=== PATIENT | male | born 1975 | race Caucasian/White ===

== ENCOUNTER 2020-06-03 07:59 | Outpatient (REF) | payer OTHER, SELFPAY | END 2020-06-03 08:00 | disposition home or self-care (01) | LOC: HO.LAB 07:59 | PROVIDERS: Visit Provider Internal Medicine | DX: Z20.828 Contact with and (suspected) exposure to other viral communicable diseases (principal) | CPT/HCPCS: 36415; 87635 ==

== ENCOUNTER 2020-06-25 16:32 | Emergency (ER) | payer OTHER, SELFPAY ==
--- NOTE | 2020-06-25 16:35 | CT_ITS ---
EXAMINATION: CT HEAD WITHOUT CONTRAST (STROKE PROTOCOL) CLINICAL INFORMATION: Stroke protocol. Altered mental status COMPARISON: None TECHNIQUE: Contiguous axial imaging was performed from the skull base to vertex without intravenous administration of contrast. This CT examination was performed using dose optimization techniques as appropriate, variously including the following: *Automated exposure control *Adjustment of mA and/or kV according to patient size (this includes techniques or standardized protocols for targeted exams where dose is matched to indication/reason for exam; i.e. extremities or head) *Use of iterative reconstruction technique DLP: 896 mGy-cm FINDINGS: There is a small crescent-shaped focus of hyperdensity just to the left of midline along the left medial frontal cortex, image 30/61. No extra-axial fluid collection. The ventricles are normal in size. There is no hydrocephalus, edema, or mass effect. The sánchez-white differentiation is maintained. There is no acute infarct or mass lesion. The calvarium appears intact. There is no pneumocephalus or orbital emphysema. The visualized sinuses and middle ears and mastoid air cells show no significant mucosal thickening. There are no air-fluid levels. CT/CT head for stroke IMPRESSION: 6 mm curvilinear focus of high density just to the left of midline along the left medial frontal cortex, along the path of the left anterior cerebral artery. This could represent a small focus of subarachnoid hemorrhage although it is along the course of the left anterior cerebral artery and could represent hyperdensity (i.e. thrombus) within the left anterior cerebral artery. In discussion with the ordering provider, the study is for trauma (fell down a flight of stairs) not for a stroke, favoring a small focus of subarachnoid hemorrhage. This critical result was discussed with Georgette Fay at 4:51 PM on 06/25/2020. It was ascertained that the content and urgency of the report was understood at the time of direct communication.
--- NOTE | 2020-06-25 16:36 | CT_ITS ---
EXAMINATION: CT CHEST, ABDOMEN AND PELVIS WITHOUT IV CONTRAST CLINICAL INFORMATION: AMS possible trauma COMPARISON: No pertinent prior studies are available for comparison. TECHNIQUE: Multidetector volumetric imaging was performed from the thoracic inlet through the pubic symphysis following the uneventful administration of: Oral contrast: No Intravenous contrast: None. Sagittal and coronal reformatted images were obtained on the technologist workstation. FINDINGS: CHEST: LUNG: There is motion artifact. Lung volumes are low. There is groundglass opacity particularly posteriorly and at the lung bases, favoring atelectasis. There is a 1 cm calcified granuloma in the left lower lobe MEDIASTINUM: Mild cardiomegaly. No pericardial effusion. Calcified left hilar lymph nodes are present. Several prominent prevascular lymph nodes are seen but no pathologically enlarged lymphadenopathy. PLEURA: No significant effusion. No pleural mass or thickening. CHEST WALL/AXILLA: Motion artifact limits evaluation for subtle rib fractures. No obvious fracture seen. ABDOMEN/PELVIS: There is respiratory motion artifact throughout the scan. The lack of intravenous contrast limits evaluation of the solid visceral organs including the liver, spleen, pancreas, and kidneys. LIVER, GALLBLADDER, AND BILIARY TREE: Limited non-contrast evaluation is normal. No gross focal hepatic lesion. Normal liver size and contour. No gross biliary ductal dilation. There is density near the neck of the gallbladder, image 30/115 which could represent a calculus. No gallbladder wall thickening or pericholecystic fluid. PANCREAS: Limited non-contrast evaluation is normal. No andrew-pancreatic fluid. SPLEEN: Limited non-contrast evaluation is normal. ADRENAL GLANDS: Normal; no adrenal mass. KIDNEYS AND URETERS: 5 mm nonobstructing left mid renal calculus. No hydronephrosis. GASTROINTESTINAL TRACT: Stomach and small bowel are nondilated. Normal appendix. There is a suture line across the sigmoid colon. No evidence of colitis or diverticulitis. ABDOMINAL WALL: There is a multicompartment fat-containing umbilical hernia. There is diastases of the rectus abdominis by 5.6 cm. There is fat in the right inguinal canal. LYMPH NODES: Prominent but not pathologically enlarged retroperitoneal lymph nodes are present. No iliac or inguinal lymphadenopathy. VASCULAR: Normal caliber abdominal aorta. BLADDER: Unremarkable. PELVIC VISCERA: Normal size prostate. OSSEOUS STRUCTURES: Motion artifact limits evaluation for fracture. No gross fracture seen. Degenerative disc disease with vacuum disc phenomenon at L5-S1. CT/CT abdomen pelvis wo con IMPRESSION: Limited study in the setting of trauma performed without IV contrast and limited by extensive patient motion artifact. No gross evidence of acute traumatic injury in the chest, abdomen, or pelvis.
--- NOTE | 2020-06-25 16:36 | CT_ITS ---
EXAMINATION: CT CERVICAL SPINE WITHOUT CONTRAST CLINICAL INFORMATION: Altered mental status. COMPARISON: None available. TECHNIQUE: Multidetector helical imaging of the cervical spine was obtained without intravenous contrast. A portion of the exam was repeated secondary to patient motion. Multiple axial reformats and coronal/sagittal reconstructions were created the technologist workstation for review. DLP: 1156 mGy-cm FINDINGS: Exam is partially limited by patient motion. The patient's neck is held with leftward sidebending. No demonstrated evidence of acute fracture or subluxation. The vertebral body heights and disc spaces are maintained. There is no prevertebral soft tissue swelling. The thyroid gland and remaining cervical soft tissues are normal in appearance. The lung apices demonstrate no abnormalities. CT/CT cervical spine wo con IMPRESSION: Exam is motion degraded. Within this limitation, there is no evidence of acute fracture or traumatic subluxation of the cervical spine.
--- NOTE | 2020-06-25 16:37 | ECG_ITS ---
Test Reason : AMS Blood Pressure : / mmHG Vent. Rate : 086 BPM Atrial Rate : 086 BPM P-R Int : 186 ms QRS Dur : 106 ms QT Int : 384 ms P-R-T Axes : 044 029 018 degrees QTc Int : 459 ms Normal sinus rhythm Normal ECG No previous ECGs available Referred By: Georgette Fay Electronically Signed By:HIRA MACK MD
--- NOTE | 2020-06-25 16:38 | ED_ITS ---
HPI - Altered Mental Status General Chief Complaint: Altered Mental Status Stated Complaint: ams unresponssive Time Seen by Provider: 06/25/20 16:35 Source: EMS Mode of arrival: EMS Limitations: altered mental status History of Present Illness HPI narrative: of note EMS story reported possible fall found down at bottome of stairs, I spoke to his family - he was okay up until just [employer] - he was going to take the kids to the store, couldn't find his keys and looked off - he sat down on the stairs no fall seen or heard, he was on the same level of stairs, his family noted his L side of face looked unusual and he seemed to be in pain MD complaint: altered mental status Onset (ago): minute(s) (45) Timing confirmed by: family member Severity: severe Consistency of symptoms: constant Context: other (became altered) Associated symptoms: denies other symptoms Treatments prior to arrival: IV fluid and spinal immobilization Related Data Allergies Allergy/AdvReac Type Severity Reaction Status Date / Time No Known Allergies Allergy Unverified 05/20/20 18:54 [No Known Allergies*] Review of Systems Review of Systems: ROS unable to be obtained due to altered mental status [facility] Past Medical History Medical History Nephrolithiasis Social History Social History (Updated 06/25/20 @ 16:45 by Georgette Fay DO) Smoking Status: Never smoker Advance Directives: No Advance Directives Information Provided: No Physical Exam Vital Signs: Vital Signs: Vital Signs Temp Pulse Resp BP Pulse Ox 06/25/20 20:00 97.9 F 81 18 109/70 95 06/25/20 18:27 97.9 F 82 22 H 110/72 99 06/25/20 17:41 86 24 H 117/72 98 06/25/20 16:50 97.5 F 87 24 H 123/85 90 L Body Mass Index 43.7 Appearance: responds to some painful stimuli, no obvious trauma ETOH odor noted, moderate distress Eyes: Pupils equal, round and reactive to light. 4mm some nystagmus noted ENT: Pharynx normal. Gag intact Neck: Normal inspection. Neck supple. CVS: Normal heart rate and rhythm. Pulses normal. Respiratory: No respiratory distress. Breath sounds normal. Abdomen: Soft and nontender. Obese Skin: Skin warm and dry. Normal skin color. Normal skin turgor. Extremities: No lower extremity edema. No calf ttp Neuro: responds to painful stimuli otherwise exam not able to be performed. Course Course Course Narrative: ? small focus of L parafalcine SAH - call from Radiology 16:52 Reevaluation(s) Reevaluation #1: gag intact, withdraws from painful stimuli, moves objects away, transfer images to [facility] [place] [facility] 1705 report signed and now states possible TIFFANY thrombus which was not relayed via verbal result - STAT CTA ordered now at this time. 1716 call back from [facility] [place]27 - [facility] attempting to review images but ANN MARIE is down, will continue to attempt to review aware patient in CTA patient still able to protect airway, pushes tongue depressor away, + ETOH , pending CTA read, asked radiology again for read 175 CTA negative no thrombus, no obvious SAH but states due to contrast cannot rule out call at 1808, will call [facility] to evaluate images. call back from [facility] [place] cannot review images but note on initial conversation that the site of SAH possibly seen does not correlate with exam. they will attempt to continue to review images once system is working, will keep patient in ED and repeat CT head in the next few hours. 183 patient is waking up now, call back from [facility] at [facility] no SAH seen 2031 CT scan negative for SAH on repeat, currently awake and alert, plan is to DC home once more stable MDM - Altered Mental Status MDM Narrative Medical decision making narrative: 44 yo male with hx of kidney stones became more altered at home (of note story from EMS and family is different), no obvious trauma, no response to narcan - at this time he is to be brought to CT scan immediately for stroke imaging, needs labs, he did respond and withdraw from me with painful stimuli, and gag intact, dispo per results and findings. . Lab Data Result diagrams: 06/25/20 17:00 06/25/20 17:00 Labs: Lab Results 06/25/20 06/25/20 06/25/20 Range/Units 16:36 16:54 16:59 WBC (4.8-10.8) X10*3/uL RBC (4.60-5.80) X10*6/uL Hgb (14.0-18.0) g/dl Hct (42-52) % MCV (80-98) fL MCH (27.0-33.0) pg MCHC (31.0-36.0) g/dl RDW (11.0-16.0) % Plt Count (160-400) X10*3/uL MPV (9.4-12.4) fL Immature Gran % (Auto) (0.0-0.4) % Neut % (Auto) (45-73) % Lymph % (Auto) (20-40) % [place] % (Auto) (2-11) % Eos % (Auto) (0-4) % Baso % (Auto) (0-2) % Lymph # (Auto) (1.2-4.9) X10*3/uL [place] # (Auto) (0.1-1.2) X10*3/uL Eos # (Auto) (0.0-0.4) X10*3/uL Baso # (Auto) (0.0-0.2) X10*3/uL Abs Immat Gran (auto) (0.00-0.03) X10*3/uL Absolute Neuts (auto) (2.0-8.3) X10*3/uL Absolute Nucleated RBC (0.0-0.012) X10*3/uL Nucleated RBC % (auto) (0.0-0.2) /100WBC PT (10.8-13.0) SEC INR (0.9-1.1) APTT (24.1-38.0) SEC ABG pH Cancelled ABG pCO2 Cancelled ABG pO2 Cancelled ABG HCO3 Cancelled ABG O2 Saturation Cancelled ABG Base Excess Cancelled Oxygen Given Cancelled Sodium (135-145) mmol/L Potassium (3.3-5.1) mmol/l Chloride (96-108) mmol/L Carbon Dioxide (22-29) mmol/L Anion Gap (12-20) BUN (9-16) mg/dL Creatinine (0.5-1.4) mg/dL Estim Creat Clear Calc Estimated GFR POC Glucose 93 (60-115) mg/dL Random Glucose (60-115) mg/dL Lactic Acid (0.5-2.0) mmol/L Calcium (8.4-10.2) mg/dL Magnesium (1.6-2.6) mg/dL Total Bilirubin (0.0-1.0) mg/dL Direct Bilirubin (0.0-0.5) mg/dL AST (5-37) U/L ALT (0-40) U/L Alkaline Phosphatase (39-117) U/L Ammonia (13-55) umol/L Total Creatine Kinase (38-174) U/L Troponin I High Sens 4.8 (<3.5-35.0) ng/L Total Protein (6.5-8.0) g/dL Albumin (3.5-5.0) g/dL Lipase (8-78) U/L TSH (0.32-4.0) mIU/mL Urine Color Urine Appearance Urine pH (5.0-8.0) Ur Specific Hydes (1.005-1.025) Urine Protein (NEG-TRACE) MG/DL Urine Glucose (UA) (NEG) MG/DL Urine Ketones (NEG) MG/DL Urine Blood (NEG) Urine Nitrite (NEG) Ur Leukocyte Esterase (NEG) Urine RBC (0) /HPF Urine WBC (0-4) /HPF Ur Squamous Epith Cells /LPF Urine Bacteria /LPF Ethyl Alcohol mg/dL Coronavirus (PCR) (Negative) 06/25/20 06/25/20 06/25/20 Range/Units 16:59 17:00 17:00 WBC 11.0 H (4.8-10.8) X10*3/uL RBC 5.01 (4.60-5.80) X10*6/uL Hgb 14.3 (14.0-18.0) g/dl Hct 43.9 (42-52) % MCV 87.6 (80-98) fL MCH 28.5 (27.0-33.0) pg MCHC 32.6 (31.0-36.0) g/dl RDW 15.7 (11.0-16.0) % Plt Count 213 (160-400) X10*3/uL MPV 12.2 (9.4-12.4) fL Immature Gran % (Auto) 0.5 H (0.0-0.4) % Neut % (Auto) 48.0 (45-73) % Lymph % (Auto) 42.0 H (20-40) % [place] % (Auto) 8.3 (2-11) % Eos % (Auto) 0.7 (0-4) % Baso % (Auto) 0.5 (0-2) % Lymph # (Auto) 4.6 (1.2-4.9) X10*3/uL [place] # (Auto) 0.9 (0.1-1.2) X10*3/uL Eos # (Auto) 0.1 (0.0-0.4) X10*3/uL Baso # (Auto) 0.1 (0.0-0.2) X10*3/uL Abs Immat Gran (auto) 0.06 H (0.00-0.03) X10*3/uL Absolute Neuts (auto) 5.3 (2.0-8.3) X10*3/uL Absolute Nucleated RBC 0.000 (0.0-0.012) X10*3/uL Nucleated RBC % (auto) 0.0 (0.0-0.2) /100WBC PT 11.2 (10.8-13.0) SEC INR 0.9 (0.9-1.1) APTT 30.3 (24.1-38.0) SEC ABG pH ABG pCO2 ABG pO2 ABG HCO3 ABG O2 Saturation ABG Base Excess Oxygen Given Sodium (135-145) mmol/L Potassium (3.3-5.1) mmol/l Chloride (96-108) mmol/L Carbon Dioxide (22-29) mmol/L Anion Gap (12-20) BUN (9-16) mg/dL Creatinine (0.5-1.4) mg/dL Estim Creat Clear Calc Estimated GFR POC Glucose (60-115) mg/dL Random Glucose (60-115) mg/dL Lactic Acid (0.5-2.0) mmol/L Calcium (8.4-10.2) mg/dL Magnesium (1.6-2.6) mg/dL Total Bilirubin (0.0-1.0) mg/dL Direct Bilirubin (0.0-0.5) mg/dL AST (5-37) U/L ALT (0-40) U/L Alkaline Phosphatase (39-117) U/L Ammonia (13-55) umol/L Total Creatine Kinase (38-174) U/L Troponin I High Sens (<3.5-35.0) ng/L Total Protein (6.5-8.0) g/dL Albumin (3.5-5.0) g/dL Lipase (8-78) U/L TSH (0.32-4.0) mIU/mL Urine Color Urine Appearance Urine pH (5.0-8.0) Ur Specific Hydes (1.005-1.025) Urine Protein (NEG-TRACE) MG/DL Urine Glucose (UA) (NEG) MG/DL Urine Ketones (NEG) MG/DL Urine Blood (NEG) Urine Nitrite (NEG) Ur Leukocyte Esterase (NEG) Urine RBC (0) /HPF Urine WBC (0-4) /HPF Ur Squamous Epith Cells /LPF Urine Bacteria /LPF Ethyl Alcohol 377 H* mg/dL Coronavirus (PCR) (Negative) 06/25/20 06/25/20 06/25/20 Range/Units 17:00 17:00 17:00 WBC (4.8-10.8) X10*3/uL RBC (4.60-5.80) X10*6/uL Hgb (14.0-18.0) g/dl Hct (42-52) % MCV (80-98) fL MCH (27.0-33.0) pg MCHC (31.0-36.0) g/dl RDW (11.0-16.0) % Plt Count (160-400) X10*3/uL MPV (9.4-12.4) fL Immature Gran % (Auto) (0.0-0.4) % Neut % (Auto) (45-73) % Lymph % (Auto) (20-40) % [place] % (Auto) (2-11) % Eos % (Auto) (0-4) % Baso % (Auto) (0-2) % Lymph # (Auto) (1.2-4.9) X10*3/uL [place] # (Auto) (0.1-1.2) X10*3/uL Eos # (Auto) (0.0-0.4) X10*3/uL Baso # (Auto) (0.0-0.2) X10*3/uL Abs Immat Gran (auto) (0.00-0.03) X10*3/uL Absolute Neuts (auto) (2.0-8.3) X10*3/uL Absolute Nucleated RBC (0.0-0.012) X10*3/uL Nucleated RBC % (auto) (0.0-0.2) /100WBC PT (10.8-13.0) SEC INR (0.9-1.1) APTT (24.1-38.0) SEC ABG pH ABG pCO2 ABG pO2 ABG HCO3 ABG O2 Saturation ABG Base Excess Oxygen Given Sodium 142 (135-145) mmol/L Potassium 3.9 (3.3-5.1) mmol/l Chloride 104 (96-108) mmol/L Carbon Dioxide 26 (22-29) mmol/L Anion Gap 16 (12-20) BUN 12 (9-16) mg/dL Creatinine 0.87 (0.5-1.4) mg/dL Estim Creat Clear Calc 136.8 Estimated GFR > 60 POC Glucose (60-115) mg/dL Random Glucose 102 (60-115) mg/dL Lactic Acid 2.0 (0.5-2.0) mmol/L Calcium 8.4 (8.4-10.2) mg/dL Magnesium 2.5 (1.6-2.6) mg/dL Total Bilirubin 0.3 (0.0-1.0) mg/dL Direct Bilirubin 0.2 (0.0-0.5) mg/dL AST 20 (5-37) U/L ALT 22 (0-40) U/L Alkaline Phosphatase 92 (39-117) U/L Ammonia 43 (13-55) umol/L Total Creatine Kinase 138 (38-174) U/L Troponin I High Sens (<3.5-35.0) ng/L Total Protein 8.1 H (6.5-8.0) g/dL Albumin 4.4 (3.5-5.0) g/dL Lipase 25 (8-78) U/L TSH 0.25 L (0.32-4.0) mIU/mL Urine Color Urine Appearance Urine pH (5.0-8.0) Ur Specific Hydes (1.005-1.025) Urine Protein (NEG-TRACE) MG/DL Urine Glucose (UA) (NEG) MG/DL Urine Ketones (NEG) MG/DL Urine Blood (NEG) Urine Nitrite (NEG) Ur Leukocyte Esterase (NEG) Urine RBC (0) /HPF Urine WBC (0-4) /HPF Ur Squamous Epith Cells /LPF Urine Bacteria /LPF Ethyl Alcohol mg/dL Coronavirus (PCR) (Negative) 06/25/20 06/25/20 Range/Units 17:20 17:46 WBC (4.8-10.8) X10*3/uL RBC (4.60-5.80) X10*6/uL Hgb (14.0-18.0) g/dl Hct (42-52) % MCV (80-98) fL MCH (27.0-33.0) pg MCHC (31.0-36.0) g/dl RDW (11.0-16.0) % Plt Count (160-400) X10*3/uL MPV (9.4-12.4) fL Immature Gran % (Auto) (0.0-0.4) % Neut % (Auto) (45-73) % Lymph % (Auto) (20-40) % [place] % (Auto) (2-11) % Eos % (Auto) (0-4) % Baso % (Auto) (0-2) % Lymph # (Auto) (1.2-4.9) X10*3/uL [place] # (Auto) (0.1-1.2) X10*3/uL Eos # (Auto) (0.0-0.4) X10*3/uL Baso # (Auto) (0.0-0.2) X10*3/uL Abs Immat Gran (auto) (0.00-0.03) X10*3/uL Absolute Neuts (auto) (2.0-8.3) X10*3/uL Absolute Nucleated RBC (0.0-0.012) X10*3/uL Nucleated RBC % (auto) (0.0-0.2) /100WBC PT (10.8-13.0) SEC INR (0.9-1.1) APTT (24.1-38.0) SEC ABG pH ABG pCO2 ABG pO2 ABG HCO3 ABG O2 Saturation ABG Base Excess Oxygen Given Sodium (135-145) mmol/L Potassium (3.3-5.1) mmol/l Chloride (96-108) mmol/L Carbon Dioxide (22-29) mmol/L Anion Gap (12-20) BUN (9-16) mg/dL Creatinine (0.5-1.4) mg/dL Estim Creat Clear Calc Estimated GFR POC Glucose (60-115) mg/dL Random Glucose (60-115) mg/dL Lactic Acid (0.5-2.0) mmol/L Calcium (8.4-10.2) mg/dL Magnesium (1.6-2.6) mg/dL Total Bilirubin (0.0-1.0) mg/dL Direct Bilirubin (0.0-0.5) mg/dL AST (5-37) U/L ALT (0-40) U/L Alkaline Phosphatase (39-117) U/L Ammonia (13-55) umol/L Total Creatine Kinase (38-174) U/L Troponin I High Sens (<3.5-35.0) ng/L Total Protein (6.5-8.0) g/dL Albumin (3.5-5.0) g/dL Lipase (8-78) U/L TSH (0.32-4.0) mIU/mL Urine Color YELLOW Urine Appearance CLEAR Urine pH 5.5 (5.0-8.0) Ur Specific Hydes <= 1.005 (1.005-1.025) Urine Protein NEG (NEG-TRACE) MG/DL Urine Glucose (UA) NEG (NEG) MG/DL Urine Ketones NEG (NEG) MG/DL Urine Blood NEG (NEG) Urine Nitrite NEG (NEG) Ur Leukocyte Esterase NEG (NEG) Urine RBC 0 (0) /HPF Urine WBC 0 (0-4) /HPF Ur Squamous Epith Cells NONE /LPF Urine Bacteria NONE /LPF Ethyl Alcohol mg/dL Coronavirus (PCR) NEGATIVE (Negative) ECG Data ECG #1: Attestation: I personally reviewed and interpreted this ECG as follows: ECG interpretation date: 06/25/20 ECG interpretation time: 17:36 Interpretation: Rate: 86 Rhythm: NSR [place]: normal Normal P waves. Normal NAVID. Normal QRS complex. ST T wave : normal qTC: normal prior studies: no acute ischemia The study has been interpreted contemporaneously by me. . Critical Care Time Critical Care Time Critical Care Time: Yes Total Critical Care Time: 60 Attestation: medical consult, repeat imaging, repeat checks I personally attest to this time spent taking care of the patient Discharge Plan Discharge Clinical Impression: Alcoholic intoxication Qualifiers: Complication of substance-induced condition: with delirium Qualified Code(s): F10.921 - Alcohol use, unspecified with intoxication delirium Patient Disposition: Home, Self-Care Instructions: Abuse of Alcohol (ED) Additional Instructions: stay with responsible adult tonight Stand Alone Forms: Work/School Release
[2020-06-25 16:40] LABS: Glucose, Whole Blood 93 mg/dL (60-115)
[2020-06-25 16:50] VITALS: BP 123/85; PULSE 87; RESP 24; TEMP 36.4; O2SAT 90; BMI 43.7
[2020-06-25 17:10] LABS: MANUAL DIFF FLAG NO
--- NOTE | 2020-06-25 17:13 | CT_ITS ---
EXAMINATION: CTA OF THE HEAD AND NECK CLINICAL INFORMATION: Rule out stroke. COMPARISON: Head CT from earlier in the same evening on 06/25/2020. TECHNIQUE: Test bolus sequences followed by intravenous administration 70 mL of Omnipaque 350. Helical imaging was performed in the axial plane from the mediastinum to the skull vertex. Delayed postcontrast imaging of the head was also performed. The data was processed at the ultrasound technologist's workstation for generation of MIP sequences. Three-dimensional volume rendered reformatted images were also generated at an offline 3-D workstation. Stenoses are assessed in accordance with NASCET criteria unless otherwise indicated. Limited study with motion artifacts. This CT examination was performed using dose optimization techniques as appropriate, variously including the following: *Automated exposure control *Adjustment of mA and/or kV according to patient size (this includes techniques or standardized protocols for targeted exams where dose is matched to indication/reason for exam; i.e. extremities or head) *Use of iterative reconstruction technique DLP: 1838 mGy-cm. FINDINGS: CT head: There is no evidence of acute territorial infarction. There is no loss of sánchez to white matter differentiation. No abnormal mass effect or midline shift is seen. No extra-axial fluid collections are identified. There is no abnormal enhancement. The ventricles are normal in size. There is no abnormal attenuation within the brain parenchyma. The osseous structures and soft tissues are normal. The mastoid air cells and visualized portions of the paranasal sinuses are well aerated. CTA neck: The imaged aortic arch and origins of the great vessels are normal. The common carotid arteries are widely patent. The carotid bifurcations are normal. The cervical internal carotid arteries are normal. The vertebral arteries opacify normally and are of normal caliber. The soft tissues of the neck are unremarkable. Mild mucosal thickening in the paranasal sinuses. The imaged portions of the lungs are clear. CTA head: The intradural vertebral arteries and basilar artery are normal. The posterior cerebral arteries are widely patent. The internal carotid arteries are of normal caliber. The TIFFANY and MCA vascular complexes bilaterally are normal. The venous sinuses opacify normally. CT/CT angio head neck stroke IMPRESSION: Normal limited CT angiogram of the head and neck with motion artifacts. Imaging findings discussed with Dr. Fay at 6:09 PM on 06/25/2020.
[2020-06-25 17:19] LABS: Basophils Absolute Auto 0.1 X10*3/uL (0.0-0.2); Basophils Percent Auto 0.5 % (0-2); Eosinophils Absolute Auto 0.1 X10*3/uL (0.0-0.4); Eosinophils Percent Auto 0.7 % (0-4); Hematocrit 43.9 % (42-52); Hemoglobin 14.3 g/dl (14.0-18.0); INTERNATIONAL NORM RATIO 0.9 (0.9-1.1); Imm Gran Abs Auto 0.06 X10*3/uL (0.00-0.03); Imm Gran Pct Auto 0.5 % (0.0-0.4); Lymphocytes Absolute Auto 4.6 X10*3/uL (1.2-4.9); Mean Corpuscular HGB Conc 32.6 g/dl (31.0-36.0); Mean Corpuscular Hemoglobin 28.5 pg (27.0-33.0); Mean Corpuscular Volume 87.6 fL (80-98); Mean Platelet Volume 12.2 fL (9.4-12.4); Monocytes Absolute Auto 0.9 X10*3/uL (0.1-1.2); Monocytes Percent Auto 8.3 % (2-11); Neutrophils Absolute Auto 5.3 X10*3/uL (2.0-8.3); Platelet Count 213 X10*3/uL (160-400); Prothrombin Time 11.2 SEC (10.8-13.0); Red Blood Count 5.01 X10*6/uL (4.60-5.80); Red Cell Distribution Width 15.7 % (11.0-16.0)
[2020-06-25 17:22] LABS: Partial Thromboplastin Time 30.3 SEC (24.1-38.0)
[2020-06-25 17:41] VITALS: BP 117/72; PULSE 86; RESP 24; O2SAT 98
[2020-06-25 17:41] LABS: Glucose Urine UA NEG (NEG); Leukocyte Esterase Urine NEG (NEG); Nitrite Urine NEG (NEG); PH 5.5 (5.0-8.0); Specific Gravity - Urine <= 1.005 (1.005-1.025); Urine Blood NEG (NEG); Urine Ketones NEG (NEG); Urine Protein NEG (NEG-TRACE)
[2020-06-25 17:42] LABS: Ethanol 377 mg/dL
[2020-06-25 17:42] LABS: Appearance Urine CLEAR; Color Urine YELLOW
[2020-06-25] MEDS: iohexoL 350 MG/ML 100 ML INFUS..BTL 70 ML IV (17:43)
[2020-06-25 17:44] LABS: Alanine Aminotransferase 22 U/L (0-40); Albumin Level 4.4 g/dL (3.5-5.0); Alkaline Phosphatase 92 U/L (39-117); Anion Gap 16 (12-20); Aspartate Amino Transferase 20 U/L (5-37); Bilirubin Direct 0.2 mg/dL (0.0-0.5); Bilirubin Total 0.3 mg/dL (0.0-1.0); Blood Urea Nitrogen 12 mg/dL (9-16); Calcium 8.4 mg/dL (8.4-10.2); Carbon Dioxide 26 mmol/L (22-29); Chloride 104 mmol/L (96-108); Creatinine Clr Calc Pharmacy 136.8; Estimated Glomerular Filt Rate > 60; Glucose Random 102 mg/dL (60-115); Lipase 25 U/L (8-78); Magnesium 2.5 mg/dL (1.6-2.6); Potassium 3.9 mmol/l (3.3-5.1); Sodium 142 mmol/L (135-145); Total Protein 8.1 g/dL (6.5-8.0)
[2020-06-25 17:48] LABS: RBC Urine 0 /HPF (0); WBC Urine 0 /HPF (0-4)
[2020-06-25 17:51] LABS: Troponin-I High Sensitivity 4.8 ng/L (<3.5-35.0)
[2020-06-25 18:05] LABS: Thyroid Stimulating Hormone 0.25 mIU/mL (0.32-4.0)
[2020-06-25 18:27] VITALS: BP 110/72; PULSE 82; RESP 22; TEMP 36.6; O2SAT 99
[2020-06-25 18:42] LABS: Ammonia 43 umol/L (13-55)
[2020-06-25] MEDS: ondansetron HCL 4 MG/2 ML VIAL IVPUSH (18:59)
[2020-06-25] MEDS: 0.9 % Sodium Chloride 1,000 ML 999 ML IVCONT (19:00)
[2020-06-25 19:30] LABS: SARS COV2 PCR INHOUSE NEGATIVE (Negative)
[2020-06-25 20:00] VITALS: BP 109/70; PULSE 81; RESP 18; TEMP 36.6; O2SAT 95
--- NOTE | 2020-06-25 20:14 | CT_ITS ---
EXAMINATION: CT HEAD WITHOUT CONTRAST CLINICAL INFORMATION: Altered mental status. COMPARISON: CT angiogram acquired in the same evening on 06/25/2020. TECHNIQUE: Contiguous axial imaging was performed from the skull base to vertex without intravenous administration of contrast. This CT examination was performed using dose optimization techniques as appropriate, variously including the following: *Automated exposure control *Adjustment of mA and/or kV according to patient size (this includes techniques or standardized protocols for targeted exams where dose is matched to indication/reason for exam; i.e. extremities or head) *Use of iterative reconstruction technique DLP: 928 mGy-cm FINDINGS: There is no evidence of acute intracranial hemorrhage or territorial infarction. No abnormal mass effect or midline shift is seen. [place] to white matter differentiation is well preserved. No extra-axial fluid collections are identified. The ventricles are normal in size. There is no abnormal attenuation within the brain parenchyma. The osseous structures and soft tissues are normal. The mastoid air cells and visualized portions of the paranasal sinuses are well aerated. CT/CT head/brain wo con IMPRESSION: No acute intracranial pathology.
--- NOTE | 2020-06-25 21:12 | PC.NURSE ---
PT NOW AWAKE ON OWN, ALERT, OFFERS NO COMPLAINTS, REPORTS DRINKING A LOT OF ALCOHOL TODAY, DENIES PAIN OR INJURY. PT AWARE/AGREEABLE OF PLAN TO OBSERVE PATIENT UNTIL STABLE ENOUGH FOR D/C.
[2020-06-25 21:21] LABS: Amphetamine Screen Urine Not Detected (Not Detect); Barbiturates, Urine Not Detected (Not Detect); Benzodiazepines Screen Urine Not Detected (Not Detect); Cannabinoid Screen Urine Not Detected (Not Detect); Cocaine Screen Urine Not Detected (Not Detect); Opiate Screen Urine Not Detected (Not Detect); Phencyclidine Screen Urine Not Detected (Not Detect)
[2020-06-25 22:00] VITALS: BP 118/72; PULSE 74; RESP 16; TEMP 36.7; O2SAT 98
--- NOTE | 2020-06-26 09:10 | MHC.STROKE ---
06/25/20 1632 PATIENT ARRIVED VIA EMS, STROKE PROTOCOL ACTIVATED, DIRECT TO CT AT 1635, ? SAH, CTH H/N ALSO DONE 1715, NO LVO (LARGE VESSEL OCCLUSION), REPEAT CTH 2003. ETOH 377. SEE ED MD DISCHARGE SUMMARY.
== END 2020-06-25 23:11 | disposition home or self-care (01) ==
PROVIDERS: Emergency Provider Emergency Medicine
DX: F10.121 Alcohol abuse with intoxication delirium (principal); Y90.8 Blood alcohol level of 240 mg/100 ml or more; Z20.828 Contact with and (suspected) exposure to other viral communicable diseases; Z87.442 Personal history of urinary calculi
CPT/HCPCS: 36415; 70450; 70496; 70498; 71250; 72125; 74176; 80048; 80076; 80307; 80320; 81001; 82140; 82550; 82947; 83605; 83690; 83735; 84443; 84484; 85025; 85610; 85730; 87040; 87635; 93005; 96361; 96374; 96375; 99284; 99291; J2405

== ENCOUNTER 2020-08-23 09:01 | Outpatient (REF) | payer OTHER, SELFPAY | END 2020-08-23 09:02 | disposition home or self-care (01) | LOC: HO.LAB 09:01 | PROVIDERS: Visit Provider Internal Medicine | DX: Z20.828 Contact with and (suspected) exposure to other viral communicable diseases (principal) | CPT/HCPCS: C9803; U0003 ==

== ENCOUNTER 2025-05-29 13:44 | Outpatient (REF) | payer OTHER, SELFPAY ==
--- OUTSIDE RECORDS SUMMARY | 2025-05-29 13:00 | XMS_ITS | Encounter Summary ---
Author Organization [employer] Address [address] [place] [address] 7[address] [place] [address] Care Team Providers Care Eyewear Consultant Name Role Phone Leyda Hunt MD Primary Care Provider [phone] Reason for Referral * Consultation (Routine) - Pending Review Specialty Diagnoses / Procedures Referred By Saray rivera Referred To Contact General Surgery Diagnoses Incisional hernia, without obstruction or gangrene Leyda Hunt MD [address] [place] [address] Phone: tel: fax: [facility] General Surgeons [address] [place] [address] Phone: tel: fax: Referral ID Status Reason Start Date Expiration Date Visits Requested Visits Authorized [id number] Pending Review Specialty Services Required 05/29/2025 05/29/2026 1 1 * Consultation (Routine) - Pending Review Specialty Diagnoses / Procedures Referred By Saray rivera Referred To Contact Gastroenterology Diagnoses Perianal fistula Leyda Hunt MD [address] [place] [address] Phone: tel: fax: [facility] General Surgery [address] [place] [address] Phone: tel: fax: Referral ID Status Reason Start Date Expiration Date Visits Requested Visits Authorized [id number] Pending Review Specialty Services Required 05/29/2025 05/29/2026 1 1 * Consultation (Routine) - Pending Review Specialty Diagnoses / Procedures Referred By Saray rivera Referred To Contact Gastroenterology Diagnoses Screening for colon cancer Perianal fistula Leyda Hunt MD [address] [place] [address] Phone: tel: fax: [facility] Gastroenterology [address] [facility] 3rd Floor [address] [place], [place] Phone: tel: fax: Referral ID Status Reason Start Date Expiration Date Visits Requested Visits Authorized [id number] Pending Review Specialty Services Required 05/29/2025 05/29/2026 1 1 Reason for Visit * Reason Comments new pt Encounter Details Date Type Department Care Team ([facility] st Contact Info) Description 05/29/2025 1:00 PM EDT Office Visit [facility] [address] [place] [id number] Leyda Hunt MD [address] [place] [address] Encounter for immunization (Primary Dx); Dietary counseling; Exercise counseling; Class 2 severe obesity with serious comorbidity and body mass index (BMI) of 37.0 to 37.9 in adult, unspecified obesity type (CMS/HCC); Screening examination for STI; Screening for colon cancer; Perianal fistula; Incisional hernia, without obstruction or gangrene Social History Tobacco Use Types Packs/Day Years Used Date Smoking Tobacco: Never Smokeless Tobacco: Never Tobacco Cessation:Counseling Given: Not Answered Sex and Gender Information Value Date Recorded Sex Assigned at Male 07/03/2022 10:31 AM EDT Legal Sex Male 10:31 AM EDT Gender Identity Male 05/28/2025 2:44 PM EDT Sexual Orientation Choose not to disclose 2021 10:31 AM EDT documented as of this encounter Last Filed Vital Signs Vital Sign Reading Time Taken Comments Blood Pressure 120/80 05/29/2025 12:59 PM EDT Pulse 66 05/29/2025 12:59 PM EDT Temperature 36.9 C (98.5 F) 05/29/2025 12:59 PM EDT Respiratory Rate 21 05/29/2025 12:59 PM EDT Oxygen Saturation - - Inhaled Oxygen Concentration - - Weight 110 kg (242 lb) 05/29/2025 12:59 PM EDT Height 170.2 cm (5' 7 ) 05/29/2025 12:59 PM EDT Body Mass Index 37.9 05/29/2025 12:59 PM EDT documented in this encounter Progress Notes * Leyda Hunt MD - 05/29/2025 1:00 PM EDT SUBJECTIVE: Lia Gee is a 49 y.o. male who presents for new/transfer patient. Denies recent illness, ER visit, or hospitalization. Accompanied by Acute Concerns: - Concerns about umbilical hernia and perianal fissure Chronic concerns: Umbilical hernia - History of diverticulitis requiring colon resection surgery several years ago - Developed umbilical hernia following colon surgery, attributed to lack of post-operative self-care - Hernia has not previously caused significant symptoms and was not addressed - Reports increased prominence and mild pain in the hernia recently, especially since losing weight - Able to reduce hernia by lying down and pushing it back in - Denies changes in color of hernia (no bloody or purple discoloration) - No history of hernia incarceration Weight loss - Weight peaked at approximately 310 lbs in 2019 - Initiated dietary changes with enroller and began regular exercise, including gym attendance and treadmill walking, starting in 2021 - Has lost approximately 75 lbs since 2021 - Currently maintaining weight loss, though progress has slowed Perianal fistula - History of perianal fistula for approximately 20 years - Fistula has produced yellow discharge but has not caused significant symptoms, so no prior treatment sought - Reports ongoing presence of fistula and intermittent discharge over the years - Underwent colonoscopy at time of colon surgery, which did not reveal significant findings Sleep apnea - Previously underwent sleep study, but did not follow up for results or treatment - Reports snoring and episodes of apparent apnea during sleep, as observed by spouse - Sleep duration typically 6.5 to 7 hours nightly - Sometimes feels tired upon waking, other times feels rested Excessive sweating - Reports excessive sweating during gym workouts, resulting in clothing being completely wet - Noted excessive sweating even while sedentary in [facility], despite hot climate and others not sweating as much - Sweating occurs over entire body - Denies discomfort in hot environments, but feels self-conscious due to sweating more than others - Reports increased sweating coinciding with period of weight loss - Consumes energy drinks (Monster, Celsius), typically two per day, sometimes three, primarily for work Family history relevant to present illness - Father of disseminated cancer of unknown primary, diagnosed late and within one month - Mother has diabetes, hypertension, and hyperthyroidism Patient Active Problem List Diagnosis Date Noted Perianal fistula 05/29/2025 Class 2 severe obesity with serious comorbidity and body mass index (BMI) of 37.0 to 37.9 in adult ([facility]) 05/29/2025 Surgical History[1] ethan-colectomy Social - Works as a cook fish eggs, night filler, 7 days a week - Regular exercise: treadmill walking, weightlifting, stretching since 2021 - Sleeps 6??-7 hours per night - Reports snoring and witnessed apneas per spouse - Consumes 2-3 energy drinks (Monster, Celsius) daily Review of Systems Constitutional: Negative. Respiratory: Negative. Cardiovascular: Negative. Gastrointestinal: Positive for abdominal distention and abdominal pain. Ventral wall incisional hernia, soft and reducible Genitourinary: Rectal pain Skin: Positive for wound. OBJECTIVE: Vitals: 05/29/25 1259 BP: 120/80 BP Location: Left arm Patient Position: Sitting BP Cuff Size: Large adult Pulse: 66 Resp: 21 Temp: 98.5 ??F (36.9 ??C) TempSrc: Oral Weight: 242 lb (110 kg) Height: 5' 7 (1.702 m) Physical Exam Vitals and nursing note reviewed. Constitutional: Appearance: Normal appearance. He is normal weight. HENT: Head: Normocephalic and atraumatic. Right Ear: Tympanic membrane, ear canal and external ear normal. Left Ear: Tympanic membrane, ear canal and external ear normal. Nose: Nose normal. Mouth/Throat: Mouth: Mucous membranes are moist. Pharynx: Oropharynx is clear. Eyes: Extraocular Movements: Extraocular movements intact. Conjunctiva/sclera: Conjunctivae normal. Pupils: Pupils are equal, round, and reactive to light. Cardiovascular: Rate and Rhythm: Normal rate and regular rhythm. Pulses: Normal pulses. Heart sounds: Normal heart sounds. Pulmonary: Effort: Pulmonary effort is normal. Breath sounds: Normal breath sounds. Abdominal: General: Abdomen is flat. Bowel sounds are normal. There is no distension. Palpations: Abdomen is soft. Hernia: A hernia is present. Comments: 8 x 9cm incisional hernia Genitourinary: Comments: 2cm perirectal fissure at 6 oclock Musculoskeletal: General: Normal range of motion. Cervical back: Normal range of motion and neck supple. Skin: General: Skin is warm and dry. Capillary Refill: Capillary refill takes less than 2 seconds. Neurological: General: No focal deficit present. Mental Status: He is alert and oriented to person, place, and time. Psychiatric: Mood and Affect: Mood normal. Behavior: Behavior normal. ASSESSMENT/PLAN Assessment & Plan Dietary counseling: - Continue current dietary regimen as advised by enroller. Maintain weight loss efforts. Exercise counseling: - Continue regular exercise including treadmill walking and weightlifting. Add stretching exercisesafter walks to improve joint flexibility. Class 2 severe obesity with serious comorbidity and body mass index (BMI) of 37.0 to 37.9 in adult,unspecified obesity type (CMS/HCC): - Class 2 obesity with significant weight loss achieved since 2021. Ongoing efforts to reduce BMI. - Continue weight loss program and regular physical activity. Monitor progress. Screening examination for STI: - Offered STI screening; no specific plan documented. Umbilical hernia: - Reducible umbilical hernia, more pronounced with recent weight loss. No signs of incarceration orstrangulation. - Referred to general surgery at [facility] for evaluation and possible outpatient surgical repair. Advised to monitor for changes in color or irreducibility and seek emergency care if these occur. Perianal fistula: - Chronic perianal fistula, longstanding and non-healing. - Referred to colorectal surgery for evaluation and possible surgical repair. Referred for colonoscopy with gastroenterology to assess for underlying pathology. Excessive diaphoresis: - Generalized hyperhidrosis, possibly related to stimulant intake (energy drinks containing caffeine and other sympathomimetic agents). - Advised to reduce intake of energy drinks and consider diluting them to decrease stimulant exposure. Suspected sleep apnea: - Suspected sleep apnea based on reported snoring and observed apneic episodes by spouse. - Deferred polysomnography until after surgical interventions and further weight loss. Appointments - Referral to oil field equipment mechanic supervisor for colonoscopy - Referral to colorectal surgeon for perianal fistula repair - Referral to general surgeon at [facility] for hernia repair - Follow-up appointment in four months to assess surgical outcomes Problem List Items Addressed This Visit Perianal fistula Relevant Orders Referral to Gastroenterology Referral to Colorectal Surgery Class 2 severe obesity with serious comorbidity and body mass index (BMI) of 37.0 to 37.9 in adult (CMS/HCC) Relevant Orders TSH W/Reflex to FT4 Hemoglobin A1c Lipid Panel, Standard Comprehensive Metabolic Panel CBC auto differential Other Visit Diagnoses Encounter for immunization - Primary Relevant Orders FLU VACCINE TRIVALENT [id number] (Fluarix) 6 mo + (Completed) Dietary counseling Exercise counseling Screening examination for STI Relevant Orders HIV-1/2 Antigen and Antibodies, Fourth Generation, with Reflexes Hepatitis C Antibody with Reflex to HCV, RNA, Quantitative, Real-Time PCR RPR (Monitor) with Reflex to Titer Chlamydia/N. Gonorrhoeae RNA, TMA, Urogenitial Screening for colon cancer Relevant Orders Referral to Gastroenterology Incisional hernia, without obstruction or gangrene Relevant Orders Referral to General Surgery Follow Up: 6-12 months or sooner prn Allergies[2] Current Medications[3] Montenegrin Translation: Provided by [facility] staff member MEET Olivo This note was drafted using Ambient (AI) technology. The patient/patient's guardian has been informed and has consented to the use of this technology: Yes [1] History reviewed. No pertinent surgical history. [2] No Known Allergies [3] No current outpatient medications on file. documented in this encounter Plan of Treatment Scheduled Orders Name Type Priority Associated Diagnoses Orde r Schedule TSH W/Reflex to FT4 Lab Routine Class 2 severe obesity with serious comorbidity and body mass index (BMI) of 37.0 to 37.9 in adult, unspecified obesity type (CMS/HCC) Expected: 05/29/2025 (Approximate), Expires: 05/29/2026 Hemoglobin A1c Lab Routine Class 2 severe obesity with serious comorbidity and body mass index (BMI) of 37.0 to 37.9 in adult, unspecified obesity type (CMS/HCC) Expected: 05/29/2025 (Approximate), Expires: 05/29/2026 Lipid Panel, Standard Lab Routine Class 2 severe obesity with serious comorbidity and body mass index (BMI) of 37.0 to 37.9 in adult, unspecified obesity type (CMS/HCC) Expected: 05/29/2025 (Approximate), Expires: 05/29/2026 Comprehensive Metabolic Panel Lab Routine Class 2 severe obesity with serious comorbidity and body mass index (BMI) of 37.0 to 37.9 in adult, unspecified obesity type (CMS/HCC) Expected: 05/29/2025 (Approximate), Expires: 05/29/2026 HIV-1/2 Antigen and Antibodies, Fourth Generation, with Reflexes Lab Routine Screening examination for STI Expected: 05/29/2025 (Approximate), Expires: 05/29/2026 Hepatitis C Antibody with Reflex to HCV, RNA, Quantitative, Real-Time PCR Lab Routine Screening examination for STI Expected: 05/29/2025, Expires: 05/29/2026 RPR (Monitor) with Reflex to Titer Lab Routine Screening examination for STI Expected: 05/29/2025, Expires: 05/29/2026 Chlamydia/N. Gonorrhoeae RNA, TMA, Urogenitial Microbiology Routine Screening examination for STI Expected: 05/29/2025 (Approximate), Expires: 05/29/2026 CBC auto differential Lab Routine Class 2 severe obesity with serious comorbidity and body mass index (BMI) of 37.0 to 37.9 in adult, unspecified obesity type (CMS/HCC) Expected: 05/29/2025 (Approximate), Expires: 05/29/2026 Scheduled Referrals Name Type Priority Associated Diagnoses Order Schedule Referral to Gastroenterology Outpatient Referral Routine Screening for colon cancer Perianal fistula Expected: 05/29/2025 (Approximate), Expires: 05/29/2026 Referral to Colorectal Surgery Outpatient Referral Routine Perianal fistula Expected: 05/29/2025 (Approximate), Expires: 05/29/2026 Referral to General Surgery Outpatient Referral Routine Incisional hernia, without obstruction or gangrene Expected: 05/29/2025 (Approximate), Expires: 05/29/2026 documented as of this encounter Visit Diagnoses Diagnosis Encounter for immunization- Primary Dietary counseling Dietary surveillance and counseling Exercise counseling Class 2 severe obesity with serious comorbidity and body mass index (BMI) of 37.0 to 37.9 in adult, unspecified obesity type (CMS/HCC) Screening examination for STI Screening for colon cancer Special screening for malignant neoplasms, colon Perianal fistula Anal fistula Incisional hernia, without obstruction or gangrene documented in this encounter Care Teams Eyewear Consultant Relationship Specialty Start Date End Date Leyda Hunt MD [address] [place] [id number] PCP - General Family Medicine 05/29/25 documented as of this encounter
--- OUTSIDE RECORDS SUMMARY | 2025-05-29 14:55 | XMS_ITS | Encounter Summary ---
Author Organization [employer] Address [address] [facility] 7t [place] [address] Care Team Providers Care Natural Science Manager Name Role Phone Unavailable Primary Care Provider Unavailabl e Reason for Visit * Reason Onset Date Comments chart prep 05/27/2025 Encounter Details Date Type Department Care Team (Late st Contact Info) Description 05/27/2025 Telephone [facility] [address] [place] [address] Leyda Hunt MD [address] [place] [address] chart prep Social History Tobacco Use Types Packs/Day Years Used Date Smoking Tobacco: Never Assessed Sex and Gender Information Value Date Recorded Sex Assigned at Male 07/03/2022 10:31 AM EDT Legal Sex Male 10:31 AM EDT Gender Identity Male 05/28/2025 2:44 PM EDT Sexual Orientation Choose not to disclose 2021 10:31 AM EDT documented as of this encounter Miscellaneous Notes * Telephone Encounter - Geovani Dunn MA - 05/27/2025 2:24 PM EDT Chart Prep Labs: not applicable Images: not applicable Referrals: not applicable Vaccines due: Covid, Flu, and Hep B Screenings: colonoscopy Overdue care gaps: SBIRT, SDOH, PHQ-9, and KIET-7 documented in this encounter Plan of Treatment Not on file documented as of this encounter Visit Diagnoses Not on filedocumented in this encounter
--- OUTSIDE RECORDS SUMMARY | 2025-05-29 14:55 | XMS_ITS | Encounter Summary ---
Author Organization [employer] Address [address] [facility] [address]t [place] [address] Care Team Providers Care Media Strategist Name Role Phone Unavailable Primary Care Provider Unavailabl e Reason for Visit * Reason Onset Date Comments Telephone Call 05/28/2025 Encounter Details Date Type Department Care Team (Late st Contact Info) Description 05/28/2025 Telephone [facility] [address] [place] [address] Leyda Hunt MD [address] [place] [address] Telephone Call Social History Tobacco Use Types Packs/Day Years Used Date Smoking Tobacco: Never Assessed Sex and Gender Information Value Date Recorded Sex Assigned at Male 07/03/2022 10:31 AM EDT Legal Sex Male 10:31 AM EDT Gender Identity Male 05/28/2025 2:44 PM EDT Sexual Orientation Choose not to disclose 2021 10:31 AM EDT documented as of this encounter Miscellaneous Notes * Telephone Encounter - Kim Cantu - 05/28/2025 9:08 AM EDT Called patient to inform them of pcp other assigned in [employer]. Let him know he needs to call the insurance to have it changed over to Leyda Hunt his new pcp before his scheduled apt tmr @1pm. Pt understood and stated he would call. documented in this encounter Plan of Treatment Not on file documented as of this encounter Visit Diagnoses Not on filedocumented in this encounter
--- OUTSIDE RECORDS SUMMARY | 2025-05-29 14:55 | XMS_ITS | Encounter Summary ---
Author Organization [employer] [facility] Address [address] [facility] [address]t [place] [address] Care Team Providers Care Adjunct Physical Education Instructor Name Role Phone Leyda Hunt MD Primary Care Provider [phone] Encounter Details Date Type Department Care Team (Latest Contact Info) Description 05/29/2025 Travel Social History Tobacco Use Types Packs/Day Years Used Date Smoking Tobacco: Never Smokeless Tobacco: Never Sex and Gender Information Value Date Recorded Sex Assigned at Male 07/03/2022 10:31 AM EDT Legal Sex Male 10:31 AM EDT Gender Identity Male 05/28/2025 2:44 PM EDT Sexual Orientation Choose not to disclose 2021 10:31 AM EDT documented as of this encounter Plan of Treatment Not on file documented as of this encounter Visit Diagnoses Not on filedocumented in this encounter Care Teams Adjunct Physical Education Instructor Relationship Specialty Start Date End Date Leyda Hunt MD [address] [place] [address] PCP - General Family Medicine 05/29/25 documented as of this encounter
--- OUTSIDE RECORDS SUMMARY | 2025-05-29 14:55 | XMS_ITS | Clinical Summary ---
Author Organization [employer] Address [address] [place] [address] [address] [place] [address] Care Team Providers Care Maintenance Welder Name Role Phone Leyda Hunt MD Primary Care Provider [phone] Allergies No known active allergies Medications No known medications Active Problems Problem Noted Date Diagnosed Date Perianal fistula 05/29/2025 Class 2 severe obesity with serious comorbidity and body mass index (BMI) of 37.0 to 37.9 in adult 05/29/2025 Encounters Date Type Department Care Team Description 05/29/2025 1:00 PM EDT Office Visit [address] [address] Leyda Hunt MD Encounter for immunization (Primary Dx); Dietary counseling; Exercise counseling; Class 2 severe obesity with serious comorbidity and body mass index (BMI) of 37.0 to 37.9 in adult, unspecified obesity type (CMS/HCC); Screening examination for STI; Screening for colon cancer; Perianal fistula; Incisional hernia, without obstruction or gangrene 05/29/2025 Travel 05/28/[address] [phone] Leyda Hunt MD Telephone Call 05/27/[address] [phone] Leyda Hunt MD chart prep 05/23/2025 Travel 05/21/2025 Patient Outreach [address] [phone] Leyda Hunt MD Pre-visit Planning ((Unable to reach for PVP screening, LVM) to be completed in office ) 03/02/[address] [address] Jesús Abreu MD from Last 3 Months Immunizations Immunization Administration Dates Next Due Influenza, seasonal, injectable, preservative fr ee 05/29/2025 Tdap 05/01/2017 Social History Tobacco Use Types Packs/Day Years Used Date Smoking Tobacco: Never Smokeless Tobacco: Never Tobacco Cessation:Counseling Given: Not Answered Sex and Gender Information Value Date Recorded Sex Assigned at Male 07/03/2022 10:31 AM EDT Legal Sex Male 10:31 AM EDT Gender Identity Male 05/28/2025 2:44 PM EDT Sexual Orientation Choose not to disclose 2021 10:31 AM EDT Last Filed Vital Signs Vital Sign Reading [...] Mass Index 37.9 05/29/2025 12:59 PM EDT Plan of Treatment Health Maintenance Due Date Last Done Comments CT Colonography 1977 Colonoscopy 1977 Colorectal Cancer Screening 1977 Depression Screening 1977 FIT DNA/Cologuard 1977 FIT 1977 FOBT 1977 HIV Screening 1977 Lipid Panel 1977 SDOH Screening 1977 Sigmoidoscopy 1977 Alcohol/Substance Use Screening 1989 Family Planning (PISQ) 1992 Hepatitis C Screening 1995 Hepatitis B Vaccines (1 of 3 - 19+ 3-dose series) 1996 COVID-19 Vaccine ( - 2023-2 5 season) 2025 Disability Screening 05/23/2026 05/23/2025 Tobacco Screening 05/29/2026 05/29/2025 DTaP/Tdap/Td Vaccines (2 - T d or Tdap) 05/01/2027 05/01/2017 Zoster Vaccines (1 of 2) 2027 RSV Patients and Pa tients Aged 60 years or older (1 - 1-dose 75+ series) 2052 Influenza Vaccine Completed 05/29/2025 HIB Vaccines Aged Out No longer eligi ble based on patient's age to complete this topic HPV Vaccines Aged Out No longer eligi ble based on patient's age to complete this topic Hepatitis A Vaccines Aged Out No long er eligible based on patient's age to complete this topic IPV Vaccines Aged Out No longer eligi ble based on patient's age to complete this topic Meningococcal B Vaccine Aged Out No l onger eligible based on patient's age to complete this topic Meningococcal Vaccine Aged Out No silvano thu eligible based on patient's age to complete this topic Pneumococcal Vaccine: Pediat rics (0 to 5 Years) and At-Risk Patients (6 to 49) Years Aged Out No longer eligi ble based on patient's age to complete this topic RSV under 20 months Aged Out No longe r eligible based on patient's age to complete this topic Rotavirus Vaccines Aged Out No longer eligible based on patient's age to complete this topic Insurance Care Teams Maintenance Welder Relationship Specialty Start Date End Date Leyda Hunt MD [address] [place] [phone] PCP - General Family Medicine 05/29/25
--- OUTSIDE RECORDS SUMMARY | 2025-05-29 14:55 | XMS_ITS | Clinical Summary ---
Author Organization [employer] [facility] ity Address [address] [place] [address] Care Team Providers Care Screed Operator Name Role Phone Unavailable Primary Care Provider Unavailabl e Social History Tobacco Use Types Packs/Day Years Used Date Smoking Tobacco: Never Assessed Sex and Gender Information Value Date Recorded Sex Assigned at Not on file Legal Sex Male 12:40 PM EST Gender Identity Not on file Sexual Orientation Not on file Plan of Treatment Health Maintenance Due Date Last Done Comments DTaP,Tdap,and Td Vaccines (1 - Tdap) 1996 Hepatitis B Vaccines (1 of 3 - 19+ 3-dose series) 1996 Depression Screening 09/03/2024 COVID-19 Vaccine (1 - 2023-2 5 season) 2025 Influenza Vaccine (#1) 2025 RSV Immunization Adult Patie nts (1 - 1-dose 75+ series) 2052 HIB Vaccines Aged Out No longer eligi [...] on patient's age to complete this topic MMR Vaccines Aged Out No longer eligi ble based on patient's age to complete this topic Meningococcal ACWY Vaccine Aged Out N o longer eligible based on patient's age to complete this topic Meningococcal B Vaccine Aged Out No l onger eligible based on patient's age to complete this topic Pneumococcal Vaccine: Pediat rics (0 to 5 Years) and At-Risk Patients (6 to 49 Years) Aged Out No longer eligible b ased on patient's age to complete this topic RSV Immunization Patients Un abelino 20 months Aged Out No longer eligible b ased on patient's age to complete this topic Varicella Vaccines Aged Out No longer eligible based on patient's age to complete this topic
[2025-05-29 16:11] LABS: NRBC Abs Auto 0.000 X10*3/uL (0.0-0.012); NRBC Pct Auto 0.0 /100WBC (0.0-0.2); SCAN SMEAR FLAG 1
[2025-05-29 16:13] LABS: Hematocrit 41.7 % (42.0-52.0); Hemoglobin 13.9 g/dl (14.0-18.0); Imm Gran Abs Auto 0.01 X10*3/uL (0.00-0.03); Imm Gran Pct Auto 0.2 % (0.0-0.4); Lymphocytes Absolute Auto 2.1 X10*3/uL (1.2-4.9); MANUAL DIFF FLAG SCAN; Mean Corpuscular HGB Conc 33.3 g/dl (31.0-36.0); Mean Corpuscular Hemoglobin 29.2 pg (27.0-33.0); Mean Corpuscular Volume 87.6 fL (80.0-98.0); PLT CLUMP 1; Red Blood Count 4.76 X10*6/uL (4.60-5.80)
[2025-05-29 16:16] LABS: Hemoglobin A1C 127.8634 umol/L; Total Hemoglobin (HGBA1C) 3667.4767 umol/L
[2025-05-29 16:34] LABS: PLT ABN DIST 1; Platelet Count 111 X10*3/uL (160-400); White Blood Count 6.3 X10*3/uL (4.8-10.8)
[2025-05-29 16:40] LABS: Alanine Aminotransferase 24 U/L (0-40); Albumin Level 4.5 g/dL (3.5-5.0); Alkaline Phosphatase 61 U/L (39-117); Anion Gap 11 (12-20); Aspartate Amino Transferase 37 U/L (5-37); Blood Urea Nitrogen 12 mg/dL (9-16); Calcium 9.0 mg/dL (8.4-10.2); Carbon Dioxide 23 mmol/L (22-29); Chloride 109 mmol/L (96-108); Cholesterol 168 mg/dL (<200); Estimated Glomerular Filt Rate > 60; HDL Cholesterol 47 mg/dL (>40); Potassium 3.6 mmol/L (3.3-5.1); Sodium 139 mmol/L (135-145); Total Protein 7.7 g/dL (6.5-8.0); Triglycerides 103 mg/dL (<150)
[2025-06-01 04:24] LABS: HIV Num 1 0.05 S/CO (0.00-0.99); ~HepC Num1 0.09 S/CO (0.00-0.79); ~Hepatitis C Antibody Nonreactive (Nonreactive)
== END 2025-05-29 13:45 | disposition home or self-care (01) ==
LOC: HO.HHCL 13:44
PROVIDERS: PCP General Practice; Visit Provider General Practice
DX: Z11.4 Encounter for screening for human immunodeficiency virus [HIV] (principal); Z11.3 Encounter for screening for infections with a predominantly sexual mode of transmission; Z11.59 Encounter for screening for other viral diseases; E66.812 Obesity, class 2; Z68.37 Body mass index [BMI] 37.0-37.9, adult
CPT/HCPCS: 36415; 80053; 80061; 83036; 84443; 85025; 86592; 86803; 87389

== ENCOUNTER 2025-07-06 10:52 | Outpatient (AMB) | payer OTHER, SELFPAY ==
--- NOTE | 2025-07-06 10:55 | A.OFFVIS_ITS ---
Vital Signs 07/06/25 11:01 Height 5 ft 7 in Weight 251 lb BMI 39.3 BP 147/86 H Blood Pressure Location Rt brachial Position Sitting Pulse 86 Intake Visit Reasons: Perianal fisula Intake Note: This patient was referred by Dr. Hunt for an assessment for perianal fistula. Pt c/o:reports no complaints at this time. DI: 06/25/20: Abd/pelvis CT Dietitian Therapeutic Required: No Accompanied by: Self / Same As Patient Allergies No Known Allergies (No Known Allergies*) Allergy (Unverified 07/06/25 11:01) Medication List - Last Reconciled 07/06/25 by Alejandro Ojeda MD No Known Home Meds HPI HPI Perianal fisula: Details: 49-year-old male referred for an incisional hernia and possible perianal fistula He said that he had surgery for diverticulitis 2010. Since that time, he has been having this has on his abdominal wall along the incision. This has been increasing in size and has been causing him discomfort He says that he wants this repaired He also has been having this current area of drainage and swelling on the right perianal region. He says that he had seen a doctor about 10 years ago who had told him that he had an anal fistula. He says that he has this checked as well because he is thinking having this repaired at some point. He denies GI complaints. He does have morbid obesity. [facility] Medical History (Updated 07/06/25 @ 11:12 by Alejandro Ojeda MD) Anal fistula Incisional hernia Morbid obesity Nephrolithiasis Surgical History History of partial surgical removal of colon Family History Father Cancer of unknown origin Social History Alcohol intake: current Alcohol intake frequency: holidays/special occasions only Patient Tobacco Use Status: Never used Tobacco Review of Systems Const Denies chills and Denies fever(s) Card Denies chest pain, Denies dyspnea and Denies dyspnea on exertion Resp Denies cough, Denies dyspnea and Denies dyspnea on exertion GI Denies hematochezia and Denies change in bowel habits Denies hematuria and Denies difficulty urinating Musc Denies back pain and Denies limited range of motion Neuro Denies focal weakness and Denies convulsions Psych Denies depression and Denies mood swings Physical Exam Vital Signs: Last Vital Signs Pulse 86 07/06/25 11: BP 147/86 H 07/06/25 11: BMI result Body Mass Index 39.3 Const Other: Morbidly obese General: comfortable and no acute distress Orientation/consciousness: patient oriented x3 Neck Neck: Yes no lymphadenopathy Resp Auscultation: clear to auscultation bilaterally Cardio Rhythm: regular rhythm GI Other: Palpable hernia on the incision just above the umbilicus, to the left of the midline, about 4 cm, reducible Rectal exam shows what appears to be an external fistulous opening on the right anterior perianal region, about 4 cm from the anal verge, with an indurated tract to the anus Palpation (GI): Soft to palpation, nontender and no guarding Rectal Exam - Male: Yes other Neuro General: patient oriented x3 Assessment & Plan Assessment & Plan (1) Incisional hernia: Code(s): K43.2 - Incisional hernia without obstruction or gangrene Category: Medical Plan: He has this incisional hernia after what appeared to be resection for diverticular disease 11 years ago. He wants to proceed with the repair I explained to him the technique of repair of this incisional hernia with mesh placement most likely. I reviewed the risks including but not limited to bleeding, infections, recurrence, bowel injury, postop pain, as well as the benefits and alternatives. I explained to him what to expect postoperatively I also told him that in view of his morbid obesity, his risks may be higher than average and he says he understands He has a given consent I have also schedule him for a CAT scan to define this hernia and assist in planning of surgical approach. (2) Anal fistula: Code(s): K60.3 - Anal fistula Category: Medical Plan: He also has what appears to be an anal fistula as described above. The external fistulous opening seems to be on the anterior right perianal area about 4 cm from the anal verge. There is an indurated cord like tract into the anal canal. He says that he eventually would like to have this surgically repaired as well. He says that he will have this done after his hernia surgery. Orders: Orders CT abdomen pelvis wo IV con Today K43.2 - Incisional hernia without obstruction or gangrene Coding Level of Care Code New Pt Level 3 (50179) Diagnoses Incisional hernia K43.2 Anal fistula K60.3
[2025-07-06 11:01] VITALS: BP 147/86; PULSE 86; BMI 39.3
--- OUTSIDE RECORDS SUMMARY | 2025-07-06 13:27 | XMS_ITS | Clinical Summary ---
Author Organization [employer] Address [address] [place] [address] Care Team Providers Care Civil Engineering Manager Name Role Phone Leyda Hunt MD Primary Care Provider [phone] Allergies No known active allergies Medications No known medications Active Problems Problem Noted Date Diagnosed Date Perianal fistula 05/29/2025 Class 2 severe obesity with serious comorbidity and body mass index (BMI) of 37.0 to 37.9 in adult 05/29/2025 Encounters Date Type Department Care Team Description 06/29/2025 Results Follow-Up [address] [address] Leyda Hunt MD TSH W/Reflex to FT4, Hemoglobin A1c, Lipid Panel, Standard, Additional followed-up results: 5 05/29/2025 1:00 PM EDT Office Visit [address] [address] Leyda Hunt MD Encounter for immunization (Primary Dx); Dietary counseling; Exercise counseling; Class 2 severe obesity with serious comorbidity and body mass index (BMI) of 37.0 to 37.9 in adult, unspecified obesity type (CMS/HCC); Screening examination for STI; Screening for colon cancer; Perianal fistula; Incisional hernia, without obstruction or gangrene 05/29/2025 Orders Only [address] [address] Leyda Hunt MD 05/29/2025 Travel 05/28/[address] [address] Leyda Hunt MD Telephone Call 05/27/2025 Telephone [facility] [address] [place] [address] Leyda Hunt MD chart prep 05/23/2025 Travel 05/21/2025 Patient Outreach [facility] [address] [place] [address] Leyda Hunt MD Pre-visit Planning ((Unable to reach for PVP screening, LVM) to be completed in office ) from Last 3 Months Immunizations Immunization Administration [...] FIT DNA/Cologuard 1977 FIT 1977 FOBT 1977 SDOH Screening 1977 Sigmoidoscopy 1977 Alcohol/Substance Use Screening 1989 Family Planning (PISQ) 1992 Hepatitis B Vaccines (1 of 3 - 19+ 3-dose series) 1996 COVID-19 Vaccine (1 - 2023-2 5 season) 2025 Disability Screening 05/23/2026 05/23/2025 Tobacco Screening 05/29/2026 05/29/2025 DTaP/Tdap/Td Vaccines (2 - T d or Tdap) 05/01/2027 05/01/2017 Zoster Vaccines (1 of 2) 2027 Lipid Panel 05/29/2030 05/29/2025 RSV Patients and Pa tients Aged 60 years or older (1 - 1-dose 75+ series) 2052 HIV Screening Completed 05/29/2025 Hepatitis C Screening Completed 05/29/2025 Influenza Vaccine Completed 05/29/2025 HIB Vaccines Aged [...] on patient's age to complete this topic Procedures Procedure Name Priority Date/Time Associated Diagnosis Comments SLIDE REVIEW Routine 05/29/2025 1:50 PM EDT CBC WITH AUTO DIFFERENTIAL Routine 05/29/2025 1:50 PM EDT Class 2 severe obesity with serious comorbidity and body mass index (BMI) of 37.0 to 37.9 in adult, unspecified obesity type (CMS/HCC) RPR (MONITOR) W/REFL TITER Routine 05/29/2025 1:50 PM EDT Screening examination for STI HEPATITIS C AB W/REFL TO HCV RNA, QN, PCR Routine 05/29/2025 1:50 PM EDT Screening examination for STI HIV 1/2 ANTIGEN/ANTIBODY, FOURTH GENERATION W/RFL Routine 05/29/2025 1:50 PM EDT Screening examination for STI COMPREHENSIVE METABOLIC PANEL Routine 05/29/2025 1:50 PM EDT Class 2 severe obesity with serious comorbidity and body mass index (BMI) of 37.0 to 37.9 in adult, unspecified obesity type (CMS/HCC) LIPID PANEL, STANDARD Routine 05/29/2025 1:50 PM EDT Class 2 severe obesity with serious comorbidity and body mass index (BMI) of 37.0 to 37.9 in adult, unspecified obesity type (CMS/HCC) HEMOGLOBIN A1C Routine 05/29/2025 1:50 PM EDT Class 2 severe obesity with serious comorbidity and body mass index (BMI) of 37.0 to 37.9 in adult, unspecified obesity type (CMS/HCC) TSH W/REFLEX TO FT4 Routine 05/29/2025 1 :50 PM EDT Class 2 severe obesity with serious comorbidity and body mass index (BMI) of 37.0 to 37.9 in adult, unspecified obesity type (CMS/HCC) from Last 3 Months Results * Slide Review (05/29/2025 1:50 PM EDT) Slide Review VERIFIED [facility] 05/29/2025 1:50 PM EDT 05/29/2025 3:57 PM EDT us Leyda Hunt MD LAB BLOOD ORDERABLES Final Res ult [facility] [address] [place] [phone] * TSH W/Reflex to FT4 (05/29/2025 1:50 PM EDT) TSH reflex Free T4 0.54 0.32 - 4.0 uIU/mL [facility] Blood Venous blood specimen / Unknown 05/29/2025 1:50 PM EDT 05/29/2025 3:57 PM EDT us Leyda Hunt MD LAB BLOOD ORDERABLES Final Res ult [facility] [address] [place] [phone] * (ABNORMAL) CBC auto differential (05/29/2025 1:50 PM EDT) [facility] White Blood Count 6.3 4.8 - 10.8 X10*3/uL [facility] Red Blood Count 4.76 4.60 - 5.80 X10*6/uL [facility] Hemoglobin 13.9(L) 14.0 - 18.0 g/dl [facility] Hematocrit 41.7(L) 42.0 - 52.0 % [facility] Mean Corpuscular Volume 87.6 80.0 - 98.0 fL [facility] Mean Corpuscular Hemoglobin 29.2 27.0 - 33.0 pg [facility] Mean Corpuscular HGB Conc 33.3 31.0 - 36.0 g/dl [facility] Red Cell Distribution Width 14.6 11.0 - 16.0 % [facility] Platelet Count 111(L) 160 - 400 X10*3/uL [facility] Mean Platelet Volume 13.6(H) 9.4 - 12.4 fL [facility] Neutrophils Percent Auto 57.7 45 - 73 % [facility] Imm Gran Pct Auto 0.2 0.0 - 0.4 % [facility] Lymphocytes Percent Auto 33.0 20 - 40 % [facility] Monocytes Percent Auto 7.0 2 - 11 % [facility] Eosinophils Percent Auto 1.0 0 - 4 % [facility] Basophils Percent Auto 1.1 0 - 2 % [facility] NRBC Pct Auto 0.0 0.0 - 0.2 /100WBC [facility] Neutrophils Absolute Auto 3.6 2.0 - 8.3 x10*3/uL [facility] Imm Gran Abs Auto 0.01 0.00 - 0.03 X10*3/uL [facility] Lymphocytes Absolute Auto 2.1 1.2 - 4.9 X10*3/uL [facility] Monocytes Absolute Auto 0.4 0.1 - 1.2 X10*3/uL [facility] Eosinophils Absolute Auto 0.1 0.0 - 0.4 X10*3/uL [facility] Basophils Absolute Auto 0.1 0.0 - 0.2 X10*3/uL [facility] NRBC Abs Auto 0.000 0.0 - 0.012 X10*3/uL [facility] Blood Venous blood specimen / Unknown 05/29/2025 1:50 PM EDT 05/29/2025 3:57 PM EDT Leyda Hunt MD LAB BLOOD ORDERABLES Edited Re sult - Final Performing Organization Address [facility]/ZIP Co de Phone Number [facility] [address] [place] [phone] * Hepatitis C Antibody with Reflex to HCV, RNA, Quantitative, Real-Time PCR (05/29/2025 1:50 PM EDT) Hepatitis C Antibody Nonreactive Nonreactive [facility] Comment:Antibodies to HCV no t detected; does not exclude early acuteHCV infection. Blood Venous blood specimen / Unknown 05/29/2025 1:50 PM EDT 05/29/2025 3:57 PM EDT Leyda Hunt MD LAB BLOOD ORDERABLES Final Res ult Performing Organization Address [facility]/ZIP Co de Phone Number [facility] [address] [place] [phone] * RPR (Monitor) with Reflex to??Titer (05/29/2025 1:50 PM EDT) RPR (Monitor) w/Refl Titer NON-REACTI VE NON-REACT GILLES [facility] Comment:THIS TEST WAS PERFOR MED AT:[facility] [place] [phone] ERICKSON MD Rapid Plasma Reagin Ab Titer TNP [facility] Blood Venous blood specimen / Unknown 05/29/2025 1:50 PM EDT 05/29/2025 3:57 PM EDT us Leyda Hunt MD LAB BLOOD ORDERABLES Final Res ult Performing Organization Address [facility]/ZIP Co de Phone Number [facility] [address] [place] [phone] * HIV-1/2 Antigen and Antibodies, Fourth Generation, with Reflexes (05/29/2025 1:50 PM EDT) HIV AB/AG Nonreactive Nonreactive [facility] Comment:HIV-1 p24 Ag and/or HIV-1/HIV-2 Ab not detected.A test result that is nonreactive does not exclude thepossibility of exposure to or infection with HIV-1 and/orHIV-2. Nonreactive results in this assay for individualswith prior exposure to HIV-1 and/or HIV-2 may be due toantigen and antibody levels that are below the limit ofdetection of this assay.The Ernie'snity HIV Ag/Ab Combo assay result andsupplemental assay results should be interpreted inconjunction with the patient's clinical presentation,history and other laboratory results. If the results areinconsistent with clinical evidence, additional testing issuggested to confirm the result. Blood Venous blood specimen / Unknown 05/29/2025 1:50 PM EDT 05/29/2025 3:57 PM EDT us Leyda Hunt MD LAB BLOOD ORDERABLES Final Res ult [facility] [address] [place] [phone] * Hemoglobin A1c (05/29/2025 1:50 PM EDT) Hemoglobin A1c 5.3 <6.0 % [facility] Comment:Hemoglobin A1C Refer ence Range Adults: 4.8 - 6.0 % Non diabetic: < 6.0 % Goal: < 7.0 %Additional Action Suggested: > 8.0 %Note: Hemoglobin A1c results are invalid for patients with abnormal amounts of HbF. Blood transfusions may impact the HbA1c concentration in the patient sample. Estimated Average Glucose 105 mg/dL [facility] Comment:eAG = Estimated ave rage glucose which is %A1C expressed asaverage glucose, using the formula of the K7Q-GkjscxoTvcogni Glucose study (ADAG), Diabetes Care, Vol.31,#8,Apr. 2007 Blood Venous blood specimen / Unknown 05/29/2025 1:50 PM EDT 05/29/2025 3:57 PM EDT us Leyda Hunt MD LAB BLOOD ORDERABLES Final Res ult [facility] [address] [place] [phone] * (ABNORMAL) Lipid Panel, Standard (05/29/2025 1:50 PM EDT) Triglycerides 103 <150 mg/dL [facility] Comment:Desirable Triglyceri de: less than 150 mg/dLBorderline High Triglyceride 150-199 mg/dLHigh Triglyceride: 200-499 mg/dLVery High Triglyceride: greater than or equal to 5OO mg/dL Cholesterol 168 <200 mg/dL [facility] Comment:Desirable Cholestero l: less than 200 mg/dLBorderline High Cholesterol: 200-239 mg/dLHigh Cholesterol: greater than 239 mg/dL LDL Cholesterol Calculated 101(H) <100 mg/dL [facility] Comment:Desirable LDL: less than 100 mg/dLNear Optimal/Above Optimal LDL: 110- 129 mg/dLBorderline High LDL: 130-159 mg/dLHigh LDL: 160-189 mg/dLVery High LDL: greater than or equal to 190 mg/dL HDL Cholesterol 47 >40 mg/dL [facility] Comment:Desirable HDL: great er than 40 mg/dL Note: This HDL assay may give artificially low results in patients with liver disease. Blood Venous blood specimen / Unknown 05/29/2025 1:50 PM EDT 05/29/2025 3:57 PM EDT us Leyda Hunt MD LAB BLOOD ORDERABLES Final Res ult [facility] [address] [place] [phone] * (ABNORMAL) Comprehensive Metabolic Panel (05/29/2025 1:50 PM EDT) Sodium 139 135 - 145 mmol/L [facility] Potassium 3.6 3.3 - 5.1 mmol/L [facility] Chloride 109(H) 96 - 108 mmol/L [facility] Carbon Dioxide 23 22 - 29 mmol/L [facility] Anion Gap 11(L) 12 - 20 [facility] Urea Nitrogen (BUN) 12 9 - 16 mg/dL [facility] Creatinine, Serum 0.93 0.5 - 1.4 mg/dL [facility] Estimated Glomerular Filt Rate >60 [facility] Comment:Chronic Kidney Disea se: Estimated GFR < 60 mL/min/1.58i4Cxogsl Kidney Disease: Estimated GFR < 15 mL/min/1.73m2 Glucose 97 60 - 115 mg/dL [facility] Calcium 9.0 8.4 - 10.2 mg/dL [facility] Bilirubin, Total 0.5 0.0 - 1.0 mg/dL [facility] Aspartate Amino Transferase 37 5 - 37 U/L [facility] Alanine Aminotransferase 24 0 - 40 U/L [facility] Total Protein 7.7 6.5 - 8.0 g/dL [facility] Albumin Level 4.5 3.5 - 5.0 g/dL [facility] Alkaline Phosphatase 61 39 - 117 U/L [facility] Blood Venous blood specimen / Unknown 05/29/2025 1:50 PM EDT 05/29/2025 3:57 PM EDT us Leyda Hunt MD LAB BLOOD ORDERABLES Final Res ult [facility] [address] [place] [phone] from Last 3 Months Insurance [facility] Care Teams Civil Engineering Manager Relationship Specialty Start Date End Date Leyda Hunt MD [address] [place] [phone] PCP - General Family Medicine 05/29/25
--- OUTSIDE RECORDS SUMMARY | 2025-07-06 13:27 | XMS_ITS | Encounter Summary ---
Author Organization [employer] Address [address] [place] [address] Care Team Providers Care Information Technology Account Manager Name Role Phone Leyda Hunt MD Primary Care Provider [phone] Encounter Details Date Type Department Care Team ([facility] st Contact Info) Description 06/29/2025 Results Follow-Up [facility] [address] [place] [address] Leyda Hunt MD [address] [place] [address] TSH W/Reflex to FT4, Hemoglobin A1c, Lipid Panel, Standard, Additional followed-up results: 5 Social History Tobacco Use Types Packs/Day Years [...] on filedocumented in this encounter Care Teams Information Technology Account Manager Relationship Specialty Start Date End Date Leyda Hunt MD [address] [place] [address] PCP - General Family Medicine 05/29/25 documented as of this encounter
--- OUTSIDE RECORDS SUMMARY | 2025-07-06 13:27 | XMS_ITS | Clinical Summary ---
Author Organization [employer] [facility] ity Address [address] [place] [address] Care Team Providers Care Hvac/R Instructor Name Role Phone Unavailable Primary Care Provider [...]
== END 2025-07-06 11:11 | disposition home or self-care (01) ==
LOC: HO.HGS 10:53
PROVIDERS: PCP General Practice; Referring Provider General Practice; Visit Provider Surgery
DX: K43.2 Incisional hernia without obstruction or gangrene (principal); K60.30 Anal fistula, unspecified
CPT/HCPCS: 99203

== ENCOUNTER → 2025-07-06 10:52 | Outpatient (BNVA) | payer OTHER, SELFPAY | PROVIDERS: PCP General Practice; Referring Provider General Practice; Visit Provider Surgery | DX: K43.2 Incisional hernia without obstruction or gangrene (principal); K60.30 Anal fistula, unspecified | CPT/HCPCS: 99202 ==

== ENCOUNTER 2025-09-02 15:32 | Outpatient (REF) | payer OTHER, SELFPAY ==
--- NOTE | ~2025-09-02 | CT_ITS ---
EXAMINATION: CT ABDOMEN PELVIS WITHOUT IV CONTRAST HISTORY: K43.2 - Incisional hernia without obstruction or gangrene COMPARISON: [facility] CT of the abdomen and pelvis June 2020 abdominal ultrasound April 2017 TECHNIQUE: CT scan of the abdomen and pelvis was performed without contrast using standard departmental protocol. Coronal and sagittal reformatted images were generated and reviewed. This CT exam was performed with one or more of the following dose reduction techniques: automated exposure control, adjustment of the mA and/or kV according to patient size, use of iterative reconstruction technique. DLP: 1135 mGy-cm FINDINGS: LOWER CHEST: 1 cm calcified 1 left lower lobe pulmonary nodule. This is similar to previous exam and probably represents a calcified granuloma. LIVER: The liver is normal in size and contour. The liver has an unremarkable unenhanced appearance. GALLBLADDER / BILE DUCTS: Gallstones. The gallbladder is otherwise unremarkable. There is no intra or extrahepatic biliary ductal dilatation. SPLEEN: The spleen is normal in size and has an unremarkable unenhanced appearance. PANCREAS: The pancreas has an unremarkable unenhanced appearance. ADRENAL GLANDS: Unremarkable. KIDNEYS/RETROPERITONEUM: Bilateral renal stones. Largest left renal stone measures 4 x 7 mm in the lower pole. Largest right renal stone measures 3 mm in the midpole. There is no hydronephrosis. LYMPH NODES: No enlarged lymphadenopathy is identified in the abdomen or pelvis. VASCULATURE: No aneurysm MESENTERY/PERITONEUM: No free fluid. No masses. There is no free intraperitoneal gas. STOMACH: There is fat density seen in the antrum of the stomach and small air fat level. This is a new finding from 2020. This probably represents something the patient has just it as opposed to a lipoma. SMALL BOWEL: The small bowel is normal in caliber. COLON: Post surgical changes to the sigmoid colon with surgical staple line. Diverticulosis of the colon. No evidence of diverticulitis. APPENDIX: Normal. URINARY BLADDER/PELVIC ORGANS: The urinary bladder is unremarkable. The prostate gland does not appear enlarged. BONES / SOFT TISSUES: Multiple ventral, and the local and paraumbilical hernias containing fat. Small 1 cm ventral hernia midline measuring 1 cm 7 cm abundant the umbilicus. Larger 2 x 4 cm midline ventral hernia 4 cm on above the umbilicus. Larger umbilical and paraumbilical hernias containing fat measuring 9 x 5 x 9 cm midline and slightly to the left of midline. Small right inguinal hernia containing fat. Degenerative changes of the spine and hips. CT/CT abdomen pelvis wo IV con IMPRESSION: Multiple umbilical and paraumbilical hernias containing fat measuring up to 9 mm. Smaller superior midline ventral hernias containing fat. Bilateral renal stones. Gallstones. Diverticulosis of the colon. Fat density in the distal stomach. This is a new finding from prior exam and may represent something the patient has ingested as opposed to a lipoma. Electronically signed by: She Roque MD 09/04/2025 08:08 AM [facility]
--- OUTSIDE RECORDS SUMMARY | 2025-09-02 16:01 | XMS_ITS | Clinical Summary ---
Author Organization [employer] [facility] ity Address [address] [place] [address] Care Team Providers Care Aadc Plans Staff Officer Name Role Phone Unavailable Primary Care Provider [...] Depression Screening 09/03/2024 COVID-19 Vaccine (1 - 2024-2 6 season) 2025 Influenza Vaccine (#1) 2025 RSV [...]
--- OUTSIDE RECORDS SUMMARY | 2025-09-02 16:01 | XMS_ITS | Clinical Summary ---
Author Organization [employer] Address [address] [place] [address] Care Team Providers Care Records Analysis Manager Name Role Phone Leyda Hunt MD Primary Care Provider [phone] Allergies No known active allergies Medications No known medications Active Problems Problem Noted Date Diagnosed Date Perianal fistula 05/29/2025 Class 2 severe obesity with serious comorbidity and body mass index (BMI) of 37.0 to 37.9 in adult 05/29/2025 Encounters Date Type Department Care Team Description 06/29/2025 Results Follow-Up [facility] [address] [place] [address] Leyda Hunt MD TSH W/Reflex to FT4, Hemoglobin A1c, Lipid Panel, Standard, Additional followed-up results: 5 from Last 3 Months Immunizations Immunization Administration [...] - 19+ 3-dose series) 1996 COVID-19 Vaccine (2024-2 6 season) 2025 Disability Screening 05/23/2026 05/23/2025 Tobacco [...] Procedure Name Priority Date/Time Associated Diagnosis Comments HEPATITIS C AB W/REFL TO HCV RNA, QN, PCR Routine 05/29/2025 1:50 PM EDT Screening examination for STI HIV 1/2 ANTIGEN/ANTIBODY, FOURTH GENERATION W/RFL Routine 05/29/2025 1:50 PM EDT Screening examination for STI LIPID PANEL, STANDARD Routine 05/29/2025 1:50 PM EDT Class 2 severe obesity with serious comorbidity and body mass index (BMI) of 37.0 to 37.9 in adult, unspecified obesity type (CMS/HCC) from Last 3 Months or Most Recently Relevant to Health Maintenance Results * Hepatitis C Antibody with Reflex to HCV, RNA, Quantitative, Real-Time PCR (05/29/2025 1:50 PM EDT) Hepatitis C Antibody Nonreactive Nonreactive [facility] Comment:Antibodies to HCV no t detected; does not exclude early acuteHCV infection. Blood Venous blood specimen / Unknown 05/29/2025 1:50 PM EDT 05/29/2025 3:57 PM EDT us Leyda Hunt MD LAB BLOOD ORDERABLES Final Res ult [facility] [address] [place] [phone] * HIV-1/2 Antigen and Antibodies, Fourth Generation, with Reflexes (05/29/2025 1:50 PM EDT) HIV AB/AG Nonreactive Nonreactive [facility] Comment:HIV-1 p24 Ag and/or HIV-1/HIV-2 Ab not detected.A test result that is nonreactive does not exclude thepossibility of exposure to or infection with HIV-1 and/orHIV-2. Nonreactive results in this assay for individualswith prior exposure to HIV-1 and/or HIV-2 may be due toantigen and antibody levels that are below the limit ofdetection of this assay.The [employer] HIV Ag/Ab Combo assay result andsupplemental assay results should be interpreted inconjunction with the patient's clinical presentation,history and other laboratory results. If the results areinconsistent with clinical evidence, additional testing issuggested to confirm the result. Blood Venous blood specimen / Unknown 05/29/2025 1:50 PM EDT 05/29/2025 3:57 PM EDT us Leyda Hunt MD LAB BLOOD ORDERABLES Final Res ult [facility] [address] [place] [phone] [phone] * (ABNORMAL) Lipid Panel, Standard (05/29/2025 1:50 PM EDT) Triglycerides 103 <150 mg/dL [facility] Comment:Desirable Triglyceri de: less than 150 mg/dLBorderline High Triglyceride 150-199 mg/dLHigh Triglyceride: 200-499 mg/dLVery High Triglyceride: greater than or equal to 5OO mg/dL Cholesterol 168 <200 mg/dL [facility] Comment:Desirable Cholestero l: less than 200 mg/dLBorderline High Cholesterol: 200-239 mg/dLHigh Cholesterol: greater than 239 mg/dL LDL Cholesterol Calculated 101(H) <100 mg/dL [facility] Comment:Desirable LDL: less than 100 mg/dLNear Optimal/Above Optimal LDL: 110- 129 mg/dLBorderline High LDL: 130-159 mg/dLHigh LDL: 160-189 mg/dLVery High LDL: greater than or equal to 190 mg/dL HDL Cholesterol 47 >40 mg/dL [facility] Comment:Desirable HDL: great er than 40 mg/dL Note: This HDL assay may give artificially low results in patients with liver disease. Blood Venous blood specimen / Unknown 05/29/2025 1:50 PM EDT 05/29/2025 3:57 PM EDT us Leyda Hunt MD LAB BLOOD ORDERABLES Final Res ult [facility] [address] [place] [phone] from Last 3 Months or Most Recently Relevant to Health Maintenance Insurance [facility] Care Teams Records Analysis Manager Relationship Specialty Start Date End Date Leyda Hunt MD [address] [place] [phone] PCP - General Family Medicine 05/29/25
--- OUTSIDE RECORDS SUMMARY | 2025-09-02 16:01 | XMS_ITS | Encounter Summary ---
Author Organization [employer] Address [address] [place] [address] Care Team Providers Care Office Manager Executive Assistant Name Role Phone Leyda Hunt MD Primary Care Provider [phone] Encounter Details Date Type Department Care Team ([facility] st Contact Info) Description 06/29/2025 Results Follow-Up [facility] [address] [place] [address] Leyda Hunt MD [address] [place] [address] TSH W/Reflex to FT4, Hemoglobin A1c, Lipid [...] on filedocumented in this encounter Care Teams Office Manager Executive Assistant Relationship Specialty Start Date End Date Leyda Hunt MD [address] [place] [address] PCP - General Family Medicine 05/29/25 documented as of this encounter
== END 2025-09-02 15:33 | disposition home or self-care (01) ==
LOC: HO.CT 15:32
PROVIDERS: PCP General Practice; Visit Provider Surgery
DX: K43.2 Incisional hernia without obstruction or gangrene (principal)
CPT/HCPCS: 74176

== ENCOUNTER → 2025-09-02 15:33 | Outpatient (BNV) | payer OTHER, SELFPAY | PROVIDERS: PCP General Practice; Visit Provider Radiology Diagnostic Radiology | DX: K80.20 Calculus of gallbladder without cholecystitis without obstruction (principal); N20.0 Calculus of kidney; K42.9 Umbilical hernia without obstruction or gangrene | CPT/HCPCS: 74176 ==